=== PATIENT | female | born 1990 | race Asian ===

== ENCOUNTER → 2017-12-02 | Outpatient (CLI) | payer OTHER ==
[~2017-12-02] MED LIST: OPTIRAY 320 IV PRN
--- NOTE | 2017-12-02 13:59 | DIAGNOSTIC IMAGING REPORT ---
CT OF THE SINUSES WITHOUT CONTRAST FUSION PROTOCOL CLINICAL HISTORY: 4 months of sinus pressure and left temporal pressure. Left parotid swelling. COMPARISON STUDY: No previous studies for comparison. TECHNIQUE: Axial images of the sinuses were obtained without IV contrast according to Fusion protocol. Coronal reformats were viewed. The CT of the neck will be reported separately. FINDINGS: Mastoid air cells are clear. There is no fluid within the middle ears. The ossicles are intact. Orbits are unremarkable. Visualized portions of the intracranial contents are within normal limits on this unenhanced examination. There is minimal rightward deviation of the nasal septum without spur formation. Major drainage pathways of the sinuses are patent. There is no significant sinus opacification or mucosal thickening. Cribriform plate is intact. There is no bony destruction. There is no mass within the sinuses or nasal cavity. There is minimal mucosal thickening within the ethmoids sinuses. The left parotid gland is better depicted on the CT of the neck but no abnormalities are identified on this unenhanced examination. No sialolith is identified. Marker overlies the left masseter muscle. IMPRESSION: Unremarkable CT of the sinuses. Minimal mucosal thickening of the ethmoid sinuses with patent major drainage pathways. No evidence of acute sinusitis. Electronically signed by: Kishore Salas M.D. 12/02/2017 1:58 PM Dictated Date/Time: 12/02/2017 1:52 PM
--- NOTE | 2017-12-02 14:01 | DIAGNOSTIC IMAGING REPORT ---
SOFT TISSUE NECK COMBO CLINICAL HISTORY: 27 years-old Female presenting with R60.9 Parotid [id number] FEMALE WITH LEFT PAROTID SWELL, concern for parotid mass versus salivary stone. TECHNIQUE: Multidetector CT of the neck was performed before and after the administration of intravenous contrast. IV contrast: 94 mL of Optiray 320. A dose lowering technique was used consistent with the principles of ALARA (as low as reasonably achievable). COMPARISON: None. CT DOSE (mGy.cm): The estimated cumulative dose is 432.37 mGy.cm. FINDINGS: Firmware Manager topogram: Unremarkable. No evidence of a salivary gland calculus. No inflammatory change. No fluid collection. Normal enhancement of the submitted tubular glands. The parotid glands are symmetric and without evidence of a mass lesion. The Stensen's ducts are nondilated. No suspicious nodular enhancement. No effacement of the valleculae or piriform sinuses. The paratracheal fat planes are nondisplaced. Paranasal sinuses and mastoid air cells clear. Orbits normal. Limited intracranial evaluation within normal limits. Cervical spine normal. Vessels patent. Lung apices clear. IMPRESSION: No evidence of a sialolith or sialadenitis. No salivary gland mass. Electronically signed by: Rudy Cohen M.D. 12/02/2017 2:00 PM Dictated Date/Time: 12/02/2017 1:55 PM
== END | disposition home or self-care (01) ==
LOC: C.CTS 13:06
DX: R60.9 Edema, unspecified (principal); J32.9 Chronic sinusitis, unspecified